=== PATIENT | male | born 2005 | race Caucasian/White ===

== ENCOUNTER 2024-11-04 07:58 | Emergency (ER) | payer OTHER ==
[~2024-11-04] VITALS: Ht 170.2 cm; Wt 87.5 kg
[2024-11-04 10:15] LABS: KETONE, URINE AUTO RFX 1+ mg/dL (NEGATIVE); LEUKOCYTE ESTERASE UR AUTO RFX TRACE (NEGATIVE); MUCUS, URINE RFX SMALL (NEGATIVE); NITRITE, URINE AUTO RFX NEGATIVE (NEGATIVE); RBC, URINE AUTO RFX 1 /HPF (0-3); SQUAM EPITHELIAL CELL UR AURFX 0 /HPF (0-6); WBC, URINE AUTO RFX 7 /HPF (0-3)
[2024-11-04 11:22] LABS: Trichomonas vaginalis (AMP) NOT DETECTED (NEGATIVE)
[2024-11-04 11:47] LABS: GC DNA AMPLIFICATION NEGATIVE (NEGATIVE)
[2024-11-04 12:13] VITALS: BP 129/60; TEMP 97.5; O2SAT 100
== END 2024-11-04 12:15 | disposition home or self-care (01) ==
LOC: M ED 07:58
DX: N50.811 Right testicular pain (principal); F17.210 Nicotine dependence, cigarettes, uncomplicated

== ENCOUNTER 2025-02-19 05:22 | Inpatient (IN) | payer OTHER ==
[~2025-02-19] VITALS: Ht 170.2 cm; Wt 85.9 kg
[2025-02-19 06:36] LABS: HEMATOCRIT 41.2 % (42.0-52.0); HEMOGLOBIN 13.4 g/dl (13.5-17.5); MEAN CORPUSCULAR HEMOGLOBIN 29.6 pg (27.0-33.0); MEAN CORPUSCULAR HGB CONC 32.5 g/dl (32.0-36.5); MEAN CORPUSCULAR VOLUME 91.2 fl (80.0-96.0); PLATELET COUNT, AUTOMATED 214 10^3/uL (150-450); RED BLOOD COUNT 4.52 10^6/uL (4.30-6.10); WHITE BLOOD COUNT 6.9 10^3/uL (4.0-10.0)
[2025-02-19 06:58] LABS: AMPHETAMINES LEVEL URINE NEGATIVE (NEGATIVE); BARBITURATES URINE NEGATIVE (NEGATIVE); BENZODIAZEPINES URINE NEGATIVE (NEGATIVE); COCAINE METABOLITE URINE NEGATIVE (NEGATIVE); METHADONE URINE NEGATIVE (NEGATIVE); OPIATES URINE NEGATIVE (NEGATIVE)
[2025-02-19 06:59] LABS: CANNABINOIDS URINE NEGATIVE (NEGATIVE); PHENCYCLIDINE URINE NEGATIVE (NEGATIVE)
[2025-02-19 07:01] LABS: ETHYL ALCOHOL (ETHANOL) < 0.003 % (0.000-0.010)
[2025-02-19 07:03] LABS: ALBUMIN 4.1 G/DL (3.2-5.2); ALKALINE PHOSPHATASE 79 U/L (40-129); ALT/SGPT 20 U/L (7.0-40); AST/SGOT 19 U/L (<34); BILIRUBIN,DIRECT 0.3 MG/DL (<0.4); BILIRUBIN,TOTAL 0.7 MG/DL (0.3-1.2); BLOOD UREA NITROGEN 15 MG/DL (9-23); CALCIUM LEVEL 9.5 MG/DL (8.5-10.1); CARBON DIOXIDE LEVEL 30 MMOL/L (20-31); CHLORIDE LEVEL 104 MMOL/L (98-107); CREATININE FOR GFR 1.24 MG/DL (0.70-1.30); GLOMERULAR FILTRATION RATE 85.4 (>60); GLUCOSE, FASTING 103 MG/DL (60-100); POTASSIUM SERUM 4.4 MMOL/L (3.5-5.1); SALICYLATE LEVEL < 3.0 MG/DL (<30); SODIUM LEVEL 141 MMOL/L (136-145); TOTAL PROTEIN 6.9 G/DL (5.7-8.2)
[2025-02-19 07:05] LABS: THYROID STIMULATING HORMONE 3.842 uIU/ML (0.48-4.17)
[2025-02-19] MEDS ORDERED: HOME MED LIST COMPLETE! XX SCH (10:40)
[2025-02-19 10:46] VITALS: BP 134/62; TEMP 97.6; O2SAT 99
[2025-02-19] MEDS ORDERED: OLANZapine ORAL DISINTEGRATING TAB 5MG PO PRN (11:45)
[2025-02-19] MEDS ORDERED: IBUPROFEN 400MG TAB PO PRN (11:45)
[2025-02-19] MEDS ORDERED: MAALOX 30 ML SUSP *UDC PO PRN (11:45)
[2025-02-19] MEDS ORDERED: MOM 30ML SUSPENSION UDC PO PRN (11:45)
[2025-02-19] MEDS ORDERED: ACETAMINOPHEN 325 MG TAB PO PRN (11:45)
[2025-02-19] MEDS ORDERED: diphenhydrAMINE 25MG CAP PO PRN (11:45)
[2025-02-19] MEDS ORDERED: traZODone 50 MG TAB PO PRN (11:45)
[2025-02-19 18:17] VITALS: BP 138/65; TEMP 98.3; O2SAT 100
[2025-02-20 06:29] VITALS: BP 127/61; TEMP 97.3; O2SAT 98
[2025-02-20 16:01] VITALS: BP 134/63; TEMP 97.9; O2SAT 100
[2025-02-21 06:38] VITALS: BP 145/81; TEMP 97.2; O2SAT 100
== END 2025-02-21 12:24 | disposition home or self-care (01) | DRG 882 ==
LOC: M ED 05:22 → M ED INP 10:13 → M PSY 10:46
PROVIDERS: ADMIT Psychiatry & Neurology Psychiatry; ATTEND Psychiatry & Neurology Psychiatry
DX: F43.22 Adjustment disorder with anxiety (principal); R45.851 Suicidal ideations; Z76.5 Malingerer [conscious simulation]